=== PATIENT | male | born 1970 ===

== ENCOUNTER → 2025-01-14 20:02 | Outpatient (REF) | payer BC, SELFPAY | LOC: MRI 3T 20:02 | PROVIDERS: ATTENDING PHYSICIAN Otolaryngology; FAMILY PHYSICIAN Family Medicine | DX: H93.12 Tinnitus, left ear (principal); H90.42 Sensorineural hearing loss, unilateral, left ear, with unrestricted hearing on the contralateral side | CPT/HCPCS: 70553; A9575 ==